=== PATIENT | female | born 1995 | race Caucasian/White ===

== ENCOUNTER 2017-01-14 08:35 | Inpatient (IN) | payer MEDICAID ==
[~2017-01-14] VITALS: Ht 160 cm; Wt 69.4 kg
[2017-01-14] MEDS ORDERED: PREN-88 PO (08:58)
[2017-01-14] MEDS ORDERED: DEXT 5%/LR + PITOCIN 20UNITS/L 1,000 ML IV SCH ×2 (08:58→09:40)
[2017-01-14] MEDS ORDERED: ACETAMINOPHEN WITH CODEINE 300/30MG TABLET PO PRN (09:45)
[2017-01-14] MEDS ORDERED: IBUPROFEN 400MG TABLET PO PRN (09:45)
[2017-01-14] MEDS ORDERED: LANOLIN OINT 0.25 GM TUBE TOP PRN (09:45)
[2017-01-14] MEDS ORDERED: METHYLERGONOVINE MALEATE 0.2 MG/ML IM PRN (09:45)
[2017-01-14 10:03] LABS: BASOPHILS % 0.3 % (0.0-2.0); HEMATOCRIT. 28.3 % (36.0-48.0); HEMOGLOBIN. 9.4 g/dL (12.0-16.0); LYMPHOCYTES % 9.7 % (20.0-50.0); MEAN CORPUSCULAR HEMOGLOBIN 27.5 pg (28.0-32.0); MEAN CORPUSCULAR VOLUME 82.8 fL (81.0-99.0); MEAN PLATELET VOLUME 11.1 fl (7.4-10.4); MONOCYTES % 2.8 % (2.0-8.0); NEUTROPHILS % 87.2 % (40.0-76.0); PLATELET 170 x1000/uL (130-400); RED BLOOD CELL COUNT 3.41 mill/uL (4.2-5.4); RED CELL DISTRIBUTION WIDTH 13.5 % (11.6-14.6)
[2017-01-14 12:59] LABS: RUBELLA IGG 62.4 IU/mL (4.99-10)
[2017-01-14 13:00] LABS: HEPATITIS B SURFACE ANTIGEN NEGATIVE
[2017-01-14] MEDS: SIMETHICONE 80MG TABLET CHEW PO SCH ×2 (13:00→21:41)
[2017-01-14] MEDS: MAGNESIUM/ALUMINUM HYDROXIDE/SIMETHICONE 30ML UDC PO SCH ×2 (13:00→21:40)
[2017-01-14 14:40] VITALS: BP 107/63
[2017-01-14 15:46] LABS: CLARITY URINE CLEAR (CLEAR); COLOR URINE YELLOW (YELLOW); GLUCOSE URINE 2+ (NEGATIVE); KETONES URINE NEGATIVE (NEGATIVE); LEUKOCYTE ESTERASE URINE TRACE (NEGATIVE); NITRITE URINE NEGATIVE (NEGATIVE); OCCULT BLOOD URINE 2+ (NEGATIVE); PROTEIN URINE NEGATIVE (NEGATIVE); SPECIFIC GRAVITY URINE 1.008 (1.005-1.030)
[2017-01-14 16:03] LABS: *AMPHETAMINES SCREEN URINE NEGATIVE (NEGATIVE); *BARBITURATES SCREEN URINE NEGATIVE (NEGATIVE); *BENZODIAZEPINES SCREEN URINE NEGATIVE (NEGATIVE); *COCAINE SCREEN URINE NEGATIVE (NEGATIVE); CANNABINOID URINE SCREEN NEGATIVE (NEGATIVE); METHADONE URINE SCREEN NEGATIVE (NEGATIVE); OPIATES URINE SCREEN NEGATIVE (NEGATIVE); PHENCYCLIDINE URINE SCREEN NEGATIVE (NEGATIVE)
[2017-01-14 16:04] VITALS: BP 97/48
[2017-01-14 20:00] VITALS: BP 110/62
[2017-01-15] VITALS: BP 92/53
[2017-01-15 07:53] LABS: BASOPHILS % 0.6 % (0.0-2.0); EOSINOPHILS % 0.6 % (0.0-5.0); HEMATOCRIT. 28.2 % (36.0-48.0); HEMOGLOBIN. 9.1 g/dL (12.0-16.0); LYMPHOCYTES % 33.4 % (20.0-50.0); MEAN CORPUSCULAR HEMOGLOBIN 27.2 pg (28.0-32.0); MEAN CORPUSCULAR VOLUME 83.9 fL (81.0-99.0); MEAN PLATELET VOLUME 11.4 fl (7.4-10.4); MONOCYTES % 5.7 % (2.0-8.0); NEUTROPHILS % 59.7 % (40.0-76.0); PLATELET 176 x1000/uL (130-400); RED BLOOD CELL COUNT 3.36 mill/uL (4.2-5.4); RED CELL DISTRIBUTION WIDTH 13.6 % (11.6-14.6)
[2017-01-15 08:30] VITALS: BP 101/58
[2017-01-15] MEDS ORDERED: PRENATAL VIT/FE FUMARATE/FA TABLET PO SCH (09:00)
[2017-01-15] MEDS ORDERED: FERROUS SULFATE 325MG TABLET PO SCH (12:10)
[2017-01-15 17:08] VITALS: BP 100/55
== END 2017-01-15 19:18 | disposition home or self-care (01) | DRG 561 ==
LOC: OBSVTOIN 08:35 → L&D 08:35 → 7EST PP/OB 10:30
PROVIDERS: ADMIT Specialist; ATTEND Specialist
DX: O90.81 Anemia of the puerperium (principal); D64.9 Anemia, unspecified
CPT/HCPCS: 36415; 80305; 81001; 85025; 86592; 86703; 86762; 86850; 86900; 87340; G0378; J2590